=== PATIENT | male | born 1960 | race Caucasian/White ===

== ENCOUNTER 2020-04-08 17:04 | Inpatient (IN) | payer MEDICARE, MEDICAID ==
[2020-04-08] MEDS ORDERED: Magnesium Hydroxide (MOM) 30 mL UDC PO PRN (20:01)
[2020-04-08] MEDS ORDERED: Maalox 30 mL Cup PO PRN (20:01)
[2020-04-08 20:02] VITALS: BP 138/94
[2020-04-08] MEDS ORDERED: Haloperidol Lactate 5 mg/mL 1mL Vial IM ONE (20:04)
--- NOTE | 2020-04-08 20:33 | History & Physical ---
ADMIT DATE: 04/08/2020 HISTORY OF PRESENT ILLNESS: The patient is a 59-year-old male with long history of schizophrenia, degenerative joint disease, chronic constipation, admitted to [facility] under Dr. Coronado's service. No fever, no chills, no nausea, no vomiting. PAST MEDICAL HISTORY: Significant for degenerative joint disease, chronic constipation, psychosis. PAST SURGICAL HISTORY: No recent surgery. ALLERGIES: None. MEDICATIONS: Follow admission reconciliation. SOCIAL HISTORY: No smoking, no alcohol, no drug. FAMILY HISTORY: Noncontributory. REVIEW OF SYSTEMS: IMMUNOLOGIC SYSTEM: No history of chronic renal disorder. CARDIOVASCULAR SYSTEM: No coronary artery disease. ENDOCRINE SYSTEM: No diabetes or thyroid problem. GASTROINTESTINAL SYSTEM: No upper or lower gastrointestinal bleed. NEUROLOGICAL SYSTEM: No seizure disorder. MUSCULOSKELETAL SYSTEM: Degenerative joint disease. HEMATOLOGICAL: No bleeding tendencies. RESPIRATORY SYSTEM: No asthma. GENITOURINARY: No dysuria or hematuria. PHYSICAL EXAMINATION: GENERAL: He is awake, not coherent, confused. VITAL SIGNS: Temperature 98.2, heart rate 78, blood pressure 137/78. HEENT: Pupils reacting equal to light and accommodation. Sclerae clear. NECK: Supple. Negative for lymphadenopathy, JVD or bruit. CHEST: Entry of air bilaterally. No rales, rhonchi or wheezing. HEART: S1, S2 normal. No murmurs, rubs or gallop rhythm. ABDOMEN: Soft, bowel sounds positive. EXTREMITIES: No edema. SKIN: Intact. NEUROLOGIC: He is awake, alert, confused. Cranial nerve #1: The patient unable to perform the task. Cranial nerve #2: The patient is able to read printed page. Cranial nerve #3: The patient is able to move eyeball upward and outward. Cranial nerve #4: The patient is able to move his eye eyeball inward and downward. Cranial nerve #5: The patient is able to clench teeth, has no residual odor. Cranial nerve #6: The patient is able to move eyeball lateral on both sides. Cranial nerve #7: The patient is able to move eyebrow upwards on both sides. Cranial nerve 8: The patient is able to hear finger rubs on both sides. Cranial nerve #9: The patient has a normal gag reflex. Cranial nerve #10: The patient is able to move soft palate upward on each side. Cranial nerve #11: The patient able to shrink shoulder on both sides. Cranial nerve #12: The patient able to stick tongue straight. Motor and sensory: Gait, unstable. Deep tendon reflexes normal. Muscle tone normal. Plantar normal. [id number] normal. Uglo-[id number] normal. Sensory normal. ASSESSMENT: 1. Degenerative joint disease. 2. Chronic constipation. 3. Psychosis. PLAN: The patient in the hospital under Dr. Coronado's service. Medical problems addressed during hospitalization is schizophrenia. Medical problems addressed at discharge is degenerative joint disease and constipation. The patient is medically stable for activity. Thank you Dr. Coronado for asking me to see your patient. The patient will follow up with primary physician upon discharge. The patient is a full code. JOB# [id number]
[2020-04-08] MEDS ORDERED: Polyvinyl Alcohol Ophth Soln 15 mL Bottle EACH EYE PRN (21:11)
[2020-04-09] MEDS: Benztropine 1 MG TAB PO SCH ×2 (04:28→16:27)
--- NOTE | 2020-04-09 08:20 | Psychiatric Evaluation ---
DATE OF SERVICE: 04/09/2020 HISTORY OF PRESENT ILLNESS: This is a 59-year-old male, currently in the hospital, transferred from [facility], medically cleared at [facility]. History of apparently bipolar versus schizophrenia. The patient is unfortunately a very bad historian. The patient tells me his name, does not know where he is or what is going on, stating, "I came here in a car," mostly excited about the mode of transportation that he arrived to the hospital, ruminates on this. I am wondering if he has a diagnosis of developmental disability. The patient is allowing ADLs, childlike on exam. PAST PSYCHIATRIC HISTORY: As noted, schizophrenia, bipolar, rule out developmental disability. MEDICATIONS: Noted including Ativan, Depakote, Seroquel, Risperdal. FAMILY HISTORY: Unclear. SOCIAL HISTORY: Coming in from a long term facility. MENTAL STATUS EXAMINATION: Stated age. Fair eye contact. Speech very hard to understand, mumbles childlike. Mood "okay." He smiles. The patient seems disorganized, poor orientation, unclear SI or HI, unclear psychotic symptoms. Poor insight. The patient required emergency dosing of Haldol when he came to the hospital because he threatened to hit the staff. DIAGNOSES: Mood, unspecified; anxiety, unspecified; psychosis, unspecified; rule out developmental disabilities, schizophrenia versus bipolar. MEDICAL: Please see full H and P. ASSESSMENT: The patient requiring hospitalization, agitated, aggressive, could not be cared for at a lower level of care. PLAN: Treatment plan includes group as well as milieu therapy. We will adjust medications. CONDITIONS FOR DISCHARGE: Improved mood, improved affect, better control of any mood and psychotic symptoms. JOB# [id number]
[2020-04-09] MEDS ORDERED: Multivitamin Tab PO SCH (09:00)
[2020-04-09] MEDS ORDERED: CRANBERRY PO SCH (09:00)
[2020-04-09] MEDS: Calcium Carb/Vit D 500 mg/200 U Tab PO SCH ×2 (09:53→16:27)
[2020-04-09] MEDS: Multivitamin w/ Minerals Tab PO SCH (09:53)
--- NOTE | 2020-04-09 13:14 | General Progress Note ---
Subjective - Review of Systems Service Date: 04/09/20 Subjective: resting comfortably no distress Objective - Results Recent Labs: Laboratory Last Values POC Glucose 85 MG/DL (70 - 105) 04/08/20 22:35 - Physical Exam Vitals and I&O: Vital Signs Temp 96.9 F 04/09/20 06:33 Pulse 98 04/09/20 06:33 Resp 20 04/09/20 06:33 BP 124/78 04/09/20 06:33 Pulse Ox 97 04/09/20 06:33 Intake & Output 04/08/20 04/09/20 04/09/20 18:59 06:59 18:59 Intake Total 120 Balance 120 Weight (lbs) 104.326 kg Intake: Oral 120 Other: # Voids 1 # Bowel Movements 0 Weight Source Bedscale Active Medications: Current Medications Acetaminophen (Tylenol) 650 mg PO Q4H PRN PRN Reason: Pain (Mild 1-3) Stop: 06/07/20 20:00 Al Hydrox/Mg Hydrox/Simethicone (Maalox) 30 ml PO Q4HR PRN PRN Reason: GI DISTRESS Stop: 06/07/20 20:00 Artificial Tears (Artificial Tears Ophth Soln) 1 drop EACH EYE DAILY PRN PRN Reason: Itching Stop: 06/07/20 21:10 Ascorbic Acid (Vitamin C) 500 mg PO DAILY [facility] Stop: 06/08/20 08:59 Last Admin: 04/09/20 09:53 Dose: 500 mg Benztropine Mesylate (Cogentin) 2 mg PO Q12H [facility] Stop: 06/08/20 04:14 Last Admin: 04/09/20 04:28 Dose: 2 mg Calcium/Vitamin D (Oscal W/Vitamin D) 1 tab PO BID [facility] Stop: 06/08/20 08:59 Last Admin: 04/09/20 09:53 Dose: 1 tab Divalproex Sodium (Depakote Dr) 1,000 mg PO BID [facility]; Protocol Stop: 06/08/20 08:59 Last Admin: 04/09/20 10:00 Dose: Not Given Docusate Sodium (Colace) 100 mg PO BID [facility] Stop: 06/08/20 08:59 Last Admin: 04/09/20 09:53 Dose: 100 mg Lorazepam (Ativan) 0.5 mg PO Q4HR PRN; Protocol PRN Reason: Anxiety Stop: 05/08/20 20:00 Lorazepam (Ativan) 1 mg PO BIDAC [facility]; Protocol Stop: 06/08/20 07:29 Last Admin: 04/09/20 08:30 Dose: Not Given Magnesium Hydroxide (Milk Of Magnesia) 30 ml PO HS PRN PRN Reason: Constipation Miscellaneous (Cranberry [Cranberry]) 1,800 mg PO DAILY [facility] Stop: 06/08/20 08:59 Quetiapine Fumarate (Seroquel) 100 mg PO BID [facility]; Protocol Stop: 06/08/20 08:59 Last Admin: 04/09/20 10:00 Dose: Not Given Risperidone (Risperdal) 1 mg PO BID [facility]; Protocol Stop: 06/08/20 08:59 Last Admin: 04/09/20 10:00 Dose: Not Given Risperidone (Risperdal) 2 mg PO HS [facility]; Protocol Stop: 06/08/20 20:59 Zinc Sulfate (Zinc Sulfate) 220 mg PO DAILY [facility] Stop: 06/08/20 08:59 Last Admin: 04/09/20 09:53 Dose: 220 mg Zolpidem Tartrate (Ambien) 5 mg PO HS [facility] Stop: 06/08/20 20:59 General: No acute distress HEENT: Atraumatic, PERRLA, EOMI Neck: Supple Cardiovascular: Regular rate, Normal S1, Normal S2 Lungs: Clear to auscultation Abdomen: Bowel sounds, Soft - Procedures Procedures: Procedures Procedure Code Date CLOSURE SKIN & SUBCUTANEOUS NEC 86.59 06/09/00 RPR S/N/AX/GEN/TRNK2.6-7.5CM 57829 06/09/00 Assessment/Plan - Assessment Assessment: psychosis DJD chronic constipation - Plan Plan: continue current treatment
[2020-04-09 14:28] LABS: % NEUTROPHILS 62.9 % (40-70); BASOPHILS % (AUTO) 0.5 % (0.0-2.0); HEMATOCRIT 38.5 % (36-54); HEMOGLOBIN 12.6 g/dL (14.0-18.0); LYMPHOCYTES % (AUTO) 19.9 % (20.5-51.5); MEAN CORPUSCULAR HEMOGLOBIN 31 pg (27-31); MEAN CORPUSCULAR HGB CONC 33 % (32-36); MEAN CORPUSCULAR VOLUME 95 fL (79.0-98.0); MONOCYTES % (AUTO) 11.7 % (1.7-9.3); NEUTROPHILS # (AUTO) 3.1 K/uL (1.8-7.7); PLATELET COUNT 133 K/uL (130-430); RED BLOOD COUNT 4.06 MIL/uL (4.2-6.2); RED CELL DISTRIBUTION WIDTH 15.4 % (9.0-15.0)
[2020-04-09 14:29] LABS: EOSINOPHILS # (AUTO) 0.2 K/uL (0.0-0.4); MONOCYTES # (AUTO) 0.6 K/uL (0.0-1.0)
[2020-04-09 14:47] LABS: POTASSIUM SERUM 4.2 mmol/L (3.5-5.1)
[2020-04-09 14:48] LABS: BILIRUBIN,TOTAL 0.2 mg/dL (0.0-1.0); CALCIUM SERUM 8.5 mg/dL (8.4-10.2); CREATININE - SERUM 0.74 mg/dL (0.70-1.30); TOTAL PROTEIN,SERUM 6.3 g/dL (6.4-8.3)
[2020-04-09 14:50] LABS: CHOLESTEROL 138 mg/dL (<200); LDL CHOLESTEROL 58 mg/dL (0-129); TRIGLYCERIDES 46 mg/dL (30-150)
[2020-04-09] MEDS ORDERED: RISPERIDONE 2 MG PO SCH (21:00)
[2020-04-10] MEDS: Multivitamin w/ Minerals Tab PO SCH (08:17)
[2020-04-10] MEDS: Calcium Carb/Vit D 500 mg/200 U Tab PO SCH ×2 (08:18→16:16)
--- NOTE | 2020-04-10 18:07 | General Progress Note ---
Subjective - Review of Systems Service Date: 04/10/20 Subjective: resting comfortably no distress Objective - Results Result Diagrams: 04/09/20 13:05 04/09/20 13:05 Recent Labs: Laboratory Last Values WBC 5.0 K/uL (4.8-10.8) 04/09/20 13:05 RBC 4.06 MIL/uL (4.2-6.2) L 04/09/20 13:05 Hgb 12.6 g/dL (14.0-18.0) L 04/09/20 13:05 Hct 38.5 % (36-54) 04/09/20 13:05 MCV 95 fL (79.0-98.0) 04/09/20 13:05 MCH 31 pg (27-31) 04/09/20 13:05 MCHC 33 % (32-36) 04/09/20 13:05 RDW 15.4 % (9.0-15.0) H 04/09/20 13:05 Plt Count 133 K/uL (130-430) 04/09/20 13:05 MPV 9.6 fl (7.4-10.4) 04/09/20 13:05 Neut % (Auto) 62.9 % (40-70) 04/09/20 13:05 Lymph % (Auto) 19.9 % (20.5-51.5) L 04/09/20 13:05 Tillman % (Auto) 11.7 % (1.7-9.3) H 04/09/20 13:05 Eos % (Auto) 5.0 % (0-4) H 04/09/20 13:05 Baso % (Auto) 0.5 % (0.0-2.0) 04/09/20 13:05 Neut # (Auto) 3.1 K/uL (1.8-7.7) 04/09/20 13:05 Lymph # (Auto) 1.0 K/uL (1.0-5.5) 04/09/20 13:05 Tillman # (Auto) 0.6 K/uL (0.0-1.0) 04/09/20 13:05 Eos # (Auto) 0.2 K/uL (0.0-0.4) 04/09/20 13:05 Baso # (Auto) 0.0 K/uL (0.0-0.2) 04/09/20 13:05 Sodium 133 mmol/L (136-145) L 04/09/20 13:05 Potassium 4.2 mmol/L (3.5-5.1) 04/09/20 13:05 Chloride 100 mmol/L (98-107) 04/09/20 13:05 Carbon Dioxide 30 mmol/L (23-29) H 04/09/20 13:05 Anion Gap 7 (5-15) 04/09/20 13:05 BUN 10 mg/dL (8-21) 04/09/20 13:05 Creatinine 0.74 mg/dL (0.70-1.30) 04/09/20 13:05 Glucose 109 mg/dL (70-99) H 04/09/20 13:05 POC Glucose 85 MG/DL (70 - 105) 04/08/20 22:35 Calcium 8.5 mg/dL (8.4-10.2) 04/09/20 13:05 Total Bilirubin 0.2 mg/dL (0.0-1.0) 04/09/20 13:05 AST 20 U/L (10-37) 04/09/20 13:05 ALT 20 U/L (12-78) 04/09/20 13:05 Alkaline Phosphatase 77 U/L (46-116) 04/09/20 13:05 Total Protein 6.3 g/dL (6.4-8.3) L 04/09/20 13:05 Albumin 2.9 g/dL (3.4-5.0) L 04/09/20 13:05 Triglycerides 46 mg/dL (30-150) 04/09/20 13:05 Cholesterol 138 mg/dL (<200) 04/09/20 13:05 LDL Cholesterol 58 mg/dL (0-129) 04/09/20 13:05 HDL Cholesterol 71 mg/dL (>45) 04/09/20 13:05 - Physical Exam Vitals and I&O: Vital Signs Temp 96.7 F 04/10/20 15:36 Pulse 104 04/10/20 15:36 Resp 20 04/10/20 15:36 BP 125/66 04/10/20 15:36 Pulse Ox 96 04/10/20 15:36 Intake & Output 04/09/20 04/10/20 04/10/20 18:59 06:59 18:59 Intake Total 1200 240 Balance 1200 240 Intake: Oral 1200 240 Other: # Voids 2 # Bowel Movements 1 Active Medications: Current Medications Acetaminophen (Tylenol) 650 mg PO Q4H PRN PRN Reason: Pain (Mild 1-3) Stop: 06/07/20 20:00 Al Hydrox/Mg Hydrox/Simethicone (Maalox) 30 ml PO Q4HR PRN PRN Reason: GI DISTRESS Stop: 06/07/20 20:00 Artificial Tears (Artificial Tears Ophth Soln) 1 drop EACH EYE DAILY PRN PRN Reason: Itching Stop: 06/07/20 21:10 Ascorbic Acid (Vitamin C) 500 mg PO DAILY [facility] Stop: 06/08/20 08:59 Last Admin: 04/10/20 08:17 Dose: 500 mg Benztropine Mesylate (Cogentin) 2 mg PO Q12H [facility] Stop: 06/09/20 08:59 Last Admin: 04/10/20 08:17 Dose: 2 mg Calcium/Vitamin D (Oscal W/Vitamin D) 1 tab PO BID [facility] Stop: 06/08/20 08:59 Last Admin: 04/10/20 16:16 Dose: 1 tab Divalproex Sodium (Depakote Dr) 1,000 mg PO BID [facility]; Protocol Stop: 06/08/20 08:59 Last Admin: 04/10/20 16:16 Dose: 1,000 mg Docusate Sodium (Colace) 100 mg PO BID [facility] Stop: 06/08/20 08:59 Last Admin: 04/10/20 16:16 Dose: 100 mg Lorazepam (Ativan) 0.5 mg PO Q4HR PRN; Protocol PRN Reason: Anxiety Stop: 05/08/20 20:00 Lorazepam (Ativan) 1 mg PO BIDAC [facility]; Protocol Stop: 06/08/20 07:29 Last Admin: 04/10/20 16:16 Dose: 1 mg Magnesium Hydroxide (Milk Of Magnesia) 30 ml PO HS PRN PRN Reason: Constipation Miscellaneous (Cranberry [Cranberry]) 1,800 mg PO DAILY [facility] Stop: 06/08/20 08:59 Quetiapine Fumarate (Seroquel) 100 mg PO BID [facility]; Protocol Stop: 06/08/20 08:59 Last Admin: 04/10/20 16:16 Dose: 100 mg Risperidone (Risperdal) 1 mg PO BID [facility]; Protocol Stop: 06/08/20 08:59 Last Admin: 04/10/20 16:16 Dose: 1 mg Risperidone (Risperdal) 2 mg PO HS [facility]; Protocol Stop: 06/08/20 20:59 Last Admin: 04/09/20 20:55 Dose: 2 mg Zinc Sulfate (Zinc Sulfate) 220 mg PO DAILY [facility] Stop: 06/08/20 08:59 Last Admin: 04/10/20 08:17 Dose: 220 mg Zolpidem Tartrate (Ambien) 5 mg PO HS [facility] Stop: 06/08/20 20:59 Last Admin: 04/09/20 20:55 Dose: 5 mg General: No acute distress HEENT: Atraumatic, PERRLA, EOMI Neck: Supple Cardiovascular: Regular rate, Normal S1, Normal S2 Lungs: Clear to auscultation Abdomen: Bowel sounds, Soft - Procedures Procedures: Procedures Procedure Code Date CLOSURE SKIN & SUBCUTANEOUS NEC 86.59 06/09/00 RPR S/N/AX/GEN/TRNK2.6-7.5CM 91367 06/09/00 Assessment/Plan - Assessment Assessment: psychosis DJD chronic constipation - Plan Plan: continue current treatment
[2020-04-11 08:06] LABS: A1C 5.3 % (4.8-5.6)
[2020-04-11] MEDS: Multivitamin w/ Minerals Tab PO SCH (08:16)
[2020-04-11] MEDS: Calcium Carb/Vit D 500 mg/200 U Tab PO SCH ×2 (08:17→16:30)
--- NOTE | 2020-04-11 19:04 | Internal Medicine Prog Note ---
Internal Medicine Subjective - Subjective Service Date: 04/11/20 Patient seen and examined:: without staff (HE IS DOING WELL) Patient is:: awake, verbal, in bed, talking, confused Per staff patient has:: no adverse event Internal Medicine Objective - Results Result Diagrams: 04/09/20 13:05 04/09/20 13:05 Recent Labs: Laboratory Last Values WBC 5.0 K/uL (4.8-10.8) 04/09/20 13:05 RBC 4.06 MIL/uL (4.2-6.2) L 04/09/20 13:05 Hgb 12.6 g/dL (14.0-18.0) L 04/09/20 13:05 Hct 38.5 % (36-54) 04/09/20 13:05 MCV 95 fL (79.0-98.0) 04/09/20 13:05 MCH 31 pg (27-31) 04/09/20 13:05 MCHC 33 % (32-36) 04/09/20 13:05 RDW 15.4 % (9.0-15.0) H 04/09/20 13:05 Plt Count 133 K/uL (130-430) 04/09/20 13:05 MPV 9.6 fl (7.4-10.4) 04/09/20 13:05 Neut % (Auto) 62.9 % (40-70) 04/09/20 13:05 Lymph % (Auto) 19.9 % (20.5-51.5) L 04/09/20 13:05 Iron % (Auto) 11.7 % (1.7-9.3) H 04/09/20 13:05 Eos % (Auto) 5.0 % (0-4) H 04/09/20 13:05 Baso % (Auto) 0.5 % (0.0-2.0) 04/09/20 13:05 Neut # (Auto) 3.1 K/uL (1.8-7.7) 04/09/20 13:05 Lymph # (Auto) 1.0 K/uL (1.0-5.5) 04/09/20 13:05 Iron # (Auto) 0.6 K/uL (0.0-1.0) 04/09/20 13:05 Eos # (Auto) 0.2 K/uL (0.0-0.4) 04/09/20 13:05 Baso # (Auto) 0.0 K/uL (0.0-0.2) 04/09/20 13:05 Sodium 133 mmol/L (136-145) L 04/09/20 13:05 Potassium 4.2 mmol/L (3.5-5.1) 04/09/20 13:05 Chloride 100 mmol/L (98-107) 04/09/20 13:05 Carbon Dioxide 30 mmol/L (23-29) H 04/09/20 13:05 Anion Gap 7 (5-15) 04/09/20 13:05 BUN 10 mg/dL (8-21) 04/09/20 13:05 Creatinine 0.74 mg/dL (0.70-1.30) 04/09/20 13:05 Glucose 109 mg/dL (70-99) H 04/09/20 13:05 POC Glucose 85 MG/DL (70 - 105) 04/08/20 22:35 Hemoglobin A1c 5.3 % (4.8-5.6) 04/09/20 13:05 Calcium 8.5 mg/dL (8.4-10.2) 04/09/20 13:05 Total Bilirubin 0.2 mg/dL (0.0-1.0) 04/09/20 13:05 AST 20 U/L (10-37) 04/09/20 13:05 ALT 20 U/L (12-78) 04/09/20 13:05 Alkaline Phosphatase 77 U/L (46-116) 04/09/20 13:05 Total Protein 6.3 g/dL (6.4-8.3) L 04/09/20 13:05 Albumin 2.9 g/dL (3.4-5.0) L 04/09/20 13:05 Triglycerides 46 mg/dL (30-150) 04/09/20 13:05 Cholesterol 138 mg/dL (<200) 04/09/20 13:05 LDL Cholesterol 58 mg/dL (0-129) 04/09/20 13:05 HDL Cholesterol 71 mg/dL (>45) 04/09/20 13:05 - Physical Exam Vitals and I&O: Vital Signs Temp 97.7 F 04/11/20 14:00 Pulse 100 04/11/20 14:00 Resp 18 04/11/20 14:00 BP 112/78 04/11/20 14:00 Pulse Ox 98 04/11/20 14:00 Intake & Output 04/11/20 04/11/20 04/12/20 06:59 18:59 06:59 Intake Total 120 1200 Balance 120 1200 Intake: Oral 120 1200 Other: # Voids 1 4 # Bowel Movements 0 0 Active Medications: Current Medications Acetaminophen (Tylenol) 650 mg PO Q4H PRN PRN Reason: Pain (Mild 1-3) Stop: 06/07/20 20:00 Al Hydrox/Mg Hydrox/Simethicone (Maalox) 30 ml PO Q4HR PRN PRN Reason: GI DISTRESS Stop: 06/07/20 20:00 Artificial Tears (Artificial Tears Ophth Soln) 1 drop EACH EYE DAILY PRN PRN Reason: Itching Stop: 06/07/20 21:10 Ascorbic Acid (Vitamin C) 500 mg PO DAILY [facility] Stop: 06/08/20 08:59 Last Admin: 04/11/20 08:17 Dose: 500 mg Benztropine Mesylate (Cogentin) 2 mg PO Q12H [facility] Stop: 06/09/20 08:59 Last Admin: 04/11/20 08:17 Dose: 2 mg Calcium/Vitamin D (Oscal W/Vitamin D) 1 tab PO BID [facility] Stop: 06/08/20 08:59 Last Admin: 04/11/20 16:30 Dose: 1 tab Divalproex Sodium (Depakote Dr) 1,000 mg PO BID [facility]; Protocol Stop: 06/08/20 08:59 Last Admin: 04/11/20 16:30 Dose: 1,000 mg Docusate Sodium (Colace) 100 mg PO BID [facility] Stop: 06/08/20 08:59 Last Admin: 04/11/20 16:30 Dose: 100 mg Lorazepam (Ativan) 0.5 mg PO Q4HR PRN; Protocol PRN Reason: Anxiety Stop: 05/08/20 20:00 Lorazepam (Ativan) 1 mg PO BIDAC [facility]; Protocol Stop: 06/08/20 07:29 Last Admin: 04/11/20 16:30 Dose: 1 mg Magnesium Hydroxide (Milk Of Magnesia) 30 ml PO HS PRN PRN Reason: Constipation Miscellaneous (Cranberry [Cranberry]) 1,800 mg PO DAILY [facility] Stop: 06/08/20 08:59 Quetiapine Fumarate (Seroquel) 100 mg PO BID [facility]; Protocol Stop: 06/08/20 08:59 Last Admin: 04/11/20 16:30 Dose: 100 mg Risperidone (Risperdal) 1 mg PO BID [facility]; Protocol Stop: 06/08/20 08:59 Last Admin: 04/11/20 16:30 Dose: 1 mg Risperidone (Risperdal) 2 mg PO HS [facility]; Protocol Stop: 06/08/20 20:59 Last Admin: 04/10/20 21:03 Dose: 2 mg Zinc Sulfate (Zinc Sulfate) 220 mg PO DAILY [facility] Stop: 06/08/20 08:59 Last Admin: 04/11/20 08:17 Dose: 220 mg Zolpidem Tartrate (Ambien) 5 mg PO HS [facility] Stop: 06/08/20 20:59 Last Admin: 04/10/20 21:03 Dose: 5 mg General: demented HEENT: NC/AT, PERRLA, EOMI, anicteric sclerae, throat clear Neck: Supple, No JVD, No thyromegaly, +2 carotid pulse wo bruit, No LAD Lungs: CTAB Cardiovascular: RRR, Normal S1, Normal S2, without murmur Abdomen: soft, non-tender, non-distended Extremities: clear Neurological: no change - Procedures Procedures: Procedures Procedure Code Date CLOSURE SKIN & SUBCUTANEOUS NEC 86.59 06/09/00 RPR S/N/AX/GEN/TRNK2.6-7.5CM 73804 06/09/00 Internal Medicine Assmt/Plan - Assessment Assessment: 1.DJD. 2.CHRONIC CONSTIPATION. 3.PSYCHOSIS - Plan Plan: CONTINUE ON CURRENT MEDICATION AND DIET.
--- NOTE | 2020-04-12 00:03 | Progress Notes ---
DATE: 04/11/2020 Case was discussed with staff of the patient, reviewed records. Covering for Dr. Coronado. This is a 59-year-old male who was admitted on 04/08/2020. The patient transferred from [facility]. He was medically at [place], history of bipolar disorder versus schizophrenia. Unfortunately, very bad historian. He told he does not know where he is, what is going on. He said he came here in a car, excited about the mode of transportation, the way he arrived to the hospital ruminated on this. He may have developmental disability. When I tried to talk to him myself, unable to verbalize a safe plan for self-care or engage in a meaningful conversation, unable to tell me the day. I tried to ask if he understand, he said yes, but he really does not. He was initiated on Risperdal 1 mg twice a day and 2 mg at bedtime. No side effects with the medication, no sedation, no nausea, no extrapyramidal symptoms. Also on Depakote 1000 mg twice a day. We will continue outpatient group therapy, milieu therapy, adjust medication as needed. JOB# [id number] PARAG
[2020-04-12] MEDS: Calcium Carb/Vit D 500 mg/200 U Tab PO SCH ×2 (08:25→16:17)
[2020-04-12] MEDS: Multivitamin w/ Minerals Tab PO SCH (08:25)
--- NOTE | 2020-04-12 09:27 | Progress Notes ---
DATE: 04/10/2020 SUBJECTIVE: This is a 59-year-old male who I saw yesterday, not really a good historian and could not tell me where he is today. He knows he is in the hospital, but really does not know why he is in the hospital, still somewhat childlike on exam, not really able to answer questions, confused on exam. Concerns about poor impulse control, needing a lot of assistance from staff, increased agitation over at the care facility in [place]. Mood "okay." It seems that he slept fairly well last night. Some periods of agitation. Apparently at some point needing a Haldol cocktail, screaming loud, making fist, threatening. Medications reviewed. Labs reviewed. Vitals were reviewed. ASSESSMENT: The patient remains symptomatic, still can be aggressive, agitated, needing emergency medications on the unit. PLAN: We will continue dosing of Risperdal. He is also on Seroquel. We will attempt to improve his medication regimen in regards to try to get him on 1 antipsychotic ____. DICTATION ENDS ABRUPTLY. JOB# [id number]
--- NOTE | 2020-04-12 20:41 | Discharge Summary ---
DATE OF DISCHARGE: 04/12/2020 IDENTIFYING INFORMATION: The patient is a 59-year-old male. HISTORY OF PRESENT ILLNESS: The patient is referred from [facility]. The patient is a poor historian. He does not know where he is. He is acting like a child, unable to answer questions and confused, poor impulse control, needing assistance from staff. Apparently, he has some increased agitation at care facility in [place]. His mood is okay. He slept fairly well, some periods of agitation. He apparently needed directions this information I got from Dr. Martinez. The patient himself is a poor historian. COURSE IN THE HOSPITAL: The patient was started back on medication as per Dr. Martinez and he was on Cogentin 2 mg twice a day. The patient also was on Depakote 1000 mg twice a day and he was also on magnesium, multivitamins, Seroquel 100 mg twice a day and Risperdal 1 mg twice a day and 2 at bedtime. The patient was kept on his medication. I talked to his brother on 04/11/2020, who relatively was upset because he said his conservator did not authorize him to bring him here. He said he was supposed to go to [facility] and he was surprised they changed off to [place] and I told him that I was not aware of exactly the reason that led [facility] to send him to this facility. My impression according to records, he started acting agitated; however, he has not been agitated since he has been here. I discussed with staff. The brother changes his mind about sending him to [facility]. He thought this is the action of [facility]. Then today apparently he agreed, so the patient will be going to [facility]. The patient is sleeping well, eating well. No suicidal ideation, no homicidal ideation; however, he is very confused, unable to make safe plan for self-care. The patient is apparently not meeting criteria for further inpatient treatment. FINAL DIAGNOSIS: Chronic undifferentiated schizophrenia. MEDICAL DIAGNOSES: Deferred to the medical doctor. The patient is unable to take care of his ADLs and not able to function socially. The patient will follow up with the psychiatrist, primary care physician and therapist at the [facility]. EXPECTED OUTCOME: Stable if the patient complies with the above. [facility]# [id number] [facility]
[2020-04-12] MEDS ORDERED: Benztropine 1 MG TAB PO SCH (21:00)
== END 2020-04-12 16:25 | DRG 885 ==
LOC: GERO 18:59
PROVIDERS: ADMIT Psychiatry & Neurology Psychiatry; ATTEND Psychiatry & Neurology Psychiatry
DX: F20.9 Schizophrenia, unspecified (principal); F41.9 Anxiety disorder, unspecified; F39 Unspecified mood [affective] disorder; F29 Unspecified psychosis not due to a substance or known physiological condition; M19.90 Unspecified osteoarthritis, unspecified site; K59.09 Other constipation
CPT/HCPCS: 36415-UA; 80053-TC; 80061-TC; 82948-90; 83036-90; 85025-TC; J1200; J1630; J2060; Z7610